=== PATIENT | female | born 1955 | race Caucasian/White ===

== ENCOUNTER → 2022-03-09 | Outpatient (CLI) | payer MEDICARE | LOC: US 14:08 | PROVIDERS: ATTEND Family Medicine | DX: N28.1 Cyst of kidney, acquired (principal) | CPT/HCPCS: 76770 ==

== ENCOUNTER → 2023-01-18 | Outpatient (CLI) | payer MEDICARE ==
[~2023-01-18] MED LIST: LORAZEPAM INJ 2 MG/ML VIAL ONE
== END ==
LOC: MRI 12-29 10:03
PROVIDERS: ATTEND Family Medicine
DX: M54.51 Vertebrogenic low back pain (principal)
CPT/HCPCS: 72148; J2060